=== PATIENT | male | born 1995 | race Two or more races ===

== ENCOUNTER 2021-06-20 16:29 | Emergency (ER) | payer MEDICAID ==
[~2021-06-20] VITALS: Ht 172.7 cm; Wt 86.2 kg
[2021-06-20 17:59] VITALS: BP 135/91
== END 2021-06-20 18:09 | disposition home or self-care (01) ==
LOC: ER 16:29
DX: T15.01XA Foreign body in cornea, right eye, initial encounter (principal); W22.8XXA Striking against or struck by other objects, initial encounter; Y93.89 Activity, other specified; Y92.89 Other specified places as the place of occurrence of the external cause; Y99.8 Other external cause status
CPT/HCPCS: 65220; 65222